=== PATIENT | male | born 1960 | race Caucasian/White ===

== ENCOUNTER 2020-08-20 06:51 | Outpatient (NON) | payer OTHER, SELFPAY ==
[2020-08-21 00:30] LABS: SARS-CoV-2 RNA PCR Negative
== END 2020-08-20 06:52 ==
PROVIDERS: PCP Family Medicine
DX: Z01.818 Encounter for other preprocedural examination (principal); Z20.828 Contact with and (suspected) exposure to other viral communicable diseases
CPT/HCPCS: 87635; C9803; U0003

== ENCOUNTER 2020-12-05 14:47 | Outpatient (CLI) | payer OTHER, SELFPAY ==
--- NOTE | ~2020-12-05 | XR_ITS ---
EXAMINATION: XR chest 2V EXAM DATE: 12/05/2020 16:00 INDICATION: Closed Anterior Dislocation Of L Shoulder/Pre-Op . TECHNIQUE: Frontal and lateral projections of the chest obtained and reviewed. Comparison is made to prior examination from 2011. FINDINGS: The lungs are clear. There are no pleural effusions. The cardiomediastinal silhouette is within normal limits. There is no pneumothorax suspected. Left humeral head not identified. IMPRESSION: No acute cardiopulmonary findings. Reviewed, dictated and finalized at location B. PRESIDENT DIGITAL STRATEGIST
[2020-12-05 15:48] LABS: Basophils Absolute Auto 0.1 K/mm3 (0.0-0.1); Basophils Percent Auto 0.6 % (0.2-1.2); Eosinophils Absolute Auto 0.3 K/mm3 (0-0.3); Eosinophils Percent Auto 3.3 % (0-4.4); Hemoglobin 15.2 g/dL (14.0-18.0); Immature Granulocyte Absolute 0.09 K/mm3 (0.00-0.031); Lymphocytes Absolute Auto 2.47 K/mm3 (0.9-3.2); Lymphocytes Percent Auto 26.5 % (18.3-44.2); Mean Corpuscular HGB Conc 33.8 g/dl (32-36); Mean Corpuscular Hemoglobin 28.8 pg (26-34); Mean Corpuscular Volume 85.2 fl (80-100); Mean Platelet Volume 10.3 fl (7.4-10.4); Monocytes Absolute Auto 0.9 K/mm3 (0.1-0.6); Monocytes Percent Auto 9.8 % (2.6-8.5); Neutrophils Absolute Auto 5.5 K/mm3 (1.3-6.7); Neutrophils Percent Auto 58.8 % (45.5-73.1); Platelet Count Result 280 k/mm3 (150-375); Red Blood Count 5.28 M/mm3 (4.6-6.20); Red Cell Distribution Width 13.4 % (11.5-14.5); White Blood Count 9.3 K/mm3 (4.5-10.0)
[2020-12-05 15:57] LABS: INR 0.9; Prothrombin Time 12.7 Seconds (11.1-14.7)
[2020-12-05 16:00] LABS: Alanine Aminotransferase 36 U/L (4-50); Albumin Level 4.2 g/dL (3.5-5.1); Alkaline Phosphatase 84 U/L (38-126); Anion Gap 5 mmol/L (8-16); Aspartate Amino Transferase 30 U/L (17-59); Blood Urea Nitrogen 19 mg/dL (9-20); Calcium 9.2 mg/dL (8.4-10.2); Carbon Dioxide 30 mmol/L (22-30); Chloride 106 mmol/L (98-107); Estimated Glomerular Filt Rate > 60; Glucose 87 mg/dL (75-110); Sodium 141 mmol/L (137-145)
== END 2020-12-05 14:48 | disposition home or self-care (01) ==
DX: S43.085A Other dislocation of left shoulder joint, initial encounter (principal); X58.XXXA Exposure to other specified factors, initial encounter
CPT/HCPCS: 36415; 71046; 80053; 85025; 85610; 87081

== ENCOUNTER → 2020-12-06 07:01 | Outpatient (CLI) | payer OTHER, SELFPAY ==
[2020-12-06 22:51] LABS: SARS-CoV-2 RNA PCR Negative
== END ==
DX: Z20.822 Contact with and (suspected) exposure to COVID-19 (principal)
CPT/HCPCS: C9803; U0003; U0005

== ENCOUNTER 2020-12-06 10:03 | Outpatient (CLI) | payer OTHER, SELFPAY ==
--- NOTE | 2020-12-06 10:40 | ECG_ITS ---
Measurements Intervals [place] Rate: 50 P: 25 NM: 168 QRS: -30 QRSD: 126 T: -15 QT: 454 QTc: 416 Interpretive Statements SINUS BRADYCARDIA INCOMPLETE RIGHT BUNDLE BRANCH BLOCK VOLTAGE CRITERIA FOR LVH BORDERLINE ST-T WAVE ABNORMALITY- INFERIOR LEADS BORDERLINE ECG Electronically Signed On 12-06-2020 11:35:12 YOUTH COORDINATOR by Sj Tirado D.O.
== END 2020-12-06 10:04 | disposition home or self-care (01) ==
DX: S43.005A Unspecified dislocation of left shoulder joint, initial encounter (principal); X58.XXXA Exposure to other specified factors, initial encounter; I45.10 Unspecified right bundle-branch block
CPT/HCPCS: 93005

== ENCOUNTER 2022-09-18 01:44 | Day surgery (SDC) | payer OTHER, SELFPAY ==
[2022-09-10 10:23] VITALS: BMI 32.0
[2022-09-18 09:25] VITALS: BP 133/75; PULSE 51; RESP 18; TEMP 36.4; O2SAT 99; BMI 31.1
[2022-09-18] MEDS: LACTATED RINGERS 1,000 ML 150 ML IV CONT (09:47)
--- NOTE | 2022-09-18 10:11 | PM.HPGS ---
History of Present Illness History of Present Illness Consent: Risks, benefits, and alternatives have been discussed and questions answered. Patient agrees to proceed with procedure. Chief complaint: neoplasm screening, gastritis Narrative: Duglas Mariscal is a 62 year old male who had mild epigastric pain but now resolved, never had scopes Review of Systems Constitutional: Constitutional: Denies headache(s) and Denies weakness Eyes: Eyes: Denies blurry vision ENT: Reports Normal hearing present, Denies headache(s) and Denies neck pain Cardiovascular: Cardiovascular: Denies chest pain and Denies dyspnea Respiratory: Respiratory: Denies dyspnea Gastrointestinal: Gastrointestinal: Reports no additional gastrointestinal complaints Genitourinary: Genitourinary: Denies dysuria Musculoskeletal: Musculoskeletal: Denies neck pain Integumentary/Breasts: Skin/Breast: Denies dry skin Neurologic: Reports Normal hearing present, Denies headache(s) and Denies weakness Psychiatric: Psychiatric: Denies anxiety Endocrine: Endocrine: Denies change in body appearance Hematologic/Lymphatic: Hematologic/Lymphatic: Denies easy bleeding Allergic/Immunologic: Allergic/Immunologic: Denies urticaria PMFSH Past Medical History Medical History (Updated 09/18/22 @ 10:12 by Unruly Nation MD) Acquired left foot drop Actinic keratosis Epigastric pain Excess sun exposure Fracture, sternum closed Head injury due to trauma Injury, shoulder and upper arm Sun-damaged skin Surgical History Surgical History (Updated 08/10/22 @ 21:28 by Myla Booth MD) H/O knee surgery Left Family History Family History (Updated 07/23/22 @ 14:09 by Myla Booth MD) Mother Hypertension Family history of elevated blood lipids Family history of diabetes mellitus in first degree relative Family history of hearing loss Sibling Hypertension Family history of elevated blood lipids Family history of diabetes mellitus in first degree relative Grandparent Cerebrovascular accident Father No problems noted. Social History Social History (Updated 07/23/22 @ 13:33 by Julienne Hines) Social History: Years smoked: 20 Smoking status: Never smoker (chewing) Tobacco type: smokeless tobacco Smokeless tobacco user: chewing tobacco Additional smoking assessment comments: Pt has chews tobacco for 20 years. Alcohol intake: never Substance use: never Substance use type: does not use Living arrangements: with family Gender identity (if verbalized by the patient): Male Sexual Orientation (if Verbalized by the Patient): Straight or Heterosexual Spiritual care concerns: No Meds Home Medications and Allergies Home Medications Medication Instructions Recorded Confirmed Type No Home Medications 09/10/22 09/18/22 History Allergies Allergy/AdvReac Type Severity Reaction Status Date / Time No Known Allergies Allergy Unknown Verified 09/18/22 09:38 Vital Signs Vital Signs - 24 hr 09/18/22 09:25 Temperature 97.5 F L Pulse Rate 51 L Respiratory Rate 18 Blood Pressure 133/75 Pulse Oximetry 99 Oxygen Delivery Room Air Exam Const: General: comfortable and no acute distress HENMT: Face/Nose/Sinus: Normal nares present Eyes: General: appearance normal, both eyes and all related structures Neck: Neck: no JVD Resp: Auscultation: clear to auscultation bilaterally Cardio: Rate: regular rate Rhythm: regular rhythm GI: Inspection: non-distended GI Palp: Yes Soft to palpation Skin: General skin exam: normal color Neuro: General: gait normal Speech: normal speech Extrem: General: normal to inspection Psych: Mental Status: mental status grossly normal Assessment and Plan Assessment and plan (1) Colon cancer screening: Code(s): Z12.11 - Encounter for screening for malignant neoplasm of colon Status: Acute Assessm
--- NOTE | 2022-09-18 10:18 | WPDANESEPPF ---
Anes - Initial Pre Proc Eval Procedure: Operation Date: 09/18/22 10:45 Proposed Procedures p Esophagogastroduodenoscopy & Screening Colonoscopy - Unruly Nation MD Date/Time: 09/18/22 10:18 Surgeon: Unruly Nation MD Pre Op Diagnosis: neoplasm screening, gastritis Patient Data Age: 62 Gender: M Height: 1.68 m Weight: 87.4 kg Last Vital Signs Temp 97.5 F L 09/18/22 09:25 Pulse 51 L 09/18/22 09:25 Resp 18 09/18/22 09:25 BP 133/75 09/18/22 09:25 Pulse Ox 99 09/18/22 09:25 O2 Del Method Room Air 09/18/22 09:25 Allergies Allergy/AdvReac Type Severity Reaction Status Date / Time No Known Allergies Allergy Unknown Verified 09/18/22 09:38 Home Medications Medication Instructions Recorded Confirmed Type No Home Medications 09/10/22 09/18/22 History Patient hx anesthesia problems: none Family hx anesthesia problems: none Results Review: All pre-operative results and documents have been reviewed as part of the pre-operative evaluation. [facility] Past Medical History Medical History (Updated 09/18/22 @ 10:12 by Unruly Nation MD) Acquired left foot drop Actinic keratosis Epigastric pain Excess sun exposure Fracture, sternum closed Head injury due to trauma Injury, shoulder and upper arm Sun-damaged skin Surgical History Surgical History (Updated 08/10/22 @ 21:28 by Myla Booth MD) H/O knee surgery Left Family History Family History (Updated 07/23/22 @ 14:09 by Myla Booth MD) Mother Hypertension Family history of elevated blood lipids Family history of diabetes mellitus in first degree relative Family history of hearing loss Sibling Hypertension Family history of elevated blood lipids Family history of diabetes mellitus in first degree relative Grandparent Cerebrovascular accident Father No problems noted. Social History Social History (Updated 07/23/22 @ 13:33 by Julienne Hines) Social History: Years smoked: 20 Smoking status: Never smoker (chewing) Tobacco type: smokeless tobacco Smokeless tobacco user: chewing tobacco Additional smoking assessment comments: Pt has chews tobacco for 20 years. Alcohol intake: never Substance use: never Substance use type: does not use Living arrangements: with family Gender identity (if verbalized by the patient): Male Sexual Orientation (if Verbalized by the Patient): Straight or Heterosexual Spiritual care concerns: No Anes - Eval Final PreProcedure Day of Procedure 09/18/22 10:18 Patient weight: obese Heart: regular rate and rhythm Lungs: clear to auscultation Airway: Mallampati scale class II Neurological: alert and oriented Last oral intake: >/= 8 hours ASA classification: II Emergent: no Anesthetic plan: proceed Anesthesia type and monitoring: general GIVS and standard monitoring Results Review: All pre-operative results and documents have been reviewed as part of the pre-operative evaluation. Informed Consent: The patient's anesthetic plan and its attendant risks and benefits were discussed with the patient/family/POA. Questions were solicited and answers provided to the satisfaction of the patient/family/POA.
[2022-09-18] MEDS: BENZOCAINE (*SP) 60 ML SPRAY CAN (HURRICAINE) 1 SPRAY MUCOUS MEM (10:19)
--- NOTE | 2022-09-18 10:30 | SUR.OPER ---
EGD end 1025 COLONOSCOPY START 1030
[2022-09-18 10:45] VITALS: BP 104/82; PULSE 63; RESP 20; O2SAT 94
[2022-09-18 10:55] VITALS: BP 102/73; PULSE 68; RESP 19; O2SAT 93
[2022-09-18 11:05] VITALS: BP 117/82; PULSE 62; RESP 17; O2SAT 96
== END 2022-09-18 11:20 | disposition home or self-care (01) ==
PROVIDERS: PCP Family Medicine; Visit Provider Internal Medicine Gastroenterology
PROC: 0DJ08ZZ Inspection of Upper Intestinal Tract, Via Natural or Artificial Opening Endoscopic (ICD-10-PCS; CPT 43235; principal; 2022-09-18 10:45)
DX: Z12.11 Encounter for screening for malignant neoplasm of colon (principal); K63.5 Polyp of colon; K64.8 Other hemorrhoids; F17.220 Nicotine dependence, chewing tobacco, uncomplicated
CPT/HCPCS: 45385; 43239; 88305; J2704; J7120